=== PATIENT | female | born 1935 | race Caucasian/White ===

== ENCOUNTER → 2018-09-21 13:26 | Outpatient (REF) | payer MEDICARE, SELFPAY ==
[2018-09-21 13:51] LABS: Add Manual Diff / Slide Review NO; Basophils Absolute Auto 100 /uL (0-100); Eosinophils Absolute Auto 100 /uL (0-450); Eosinophils Percent Auto 1.3 % (2-4); Hematocrit 47.9 % (36-46); Hemoglobin 15.7 g/dL (12.0-16.0); Lymphocytes Absolute Auto 600 /uL (1100-4500); Lymphocytes Percent Auto 8.1 % (25-40); Mean Corpuscular HGB Conc 32.7 % (30-36); Mean Corpuscular Hemoglobin 29.4 PG (26-34); Mean Corpuscular Volume 89.9 fL (80-100); Monocytes Absolute Auto 500 /uL (0-900); Monocytes Percent Auto 6.5 % (3-14); Neutrophils Absolute Auto 6500 /uL (1500-7000); Neutrophils Percent Auto 83.1 % (50-75); Platelet Count 357 X10^3/uL (150-400); Red Blood Cell Count 5.33 X10^6/uL (4.0-5.2); Red Cell Distribution Width 14.8 % (11.6-14.8); White Blood Cell Count 7.8 X10^3/uL (4.5-11.0)
[2018-09-21 14:00] LABS: Alanine Aminotransferase 27 IU/L (9-52); Albumin 4.5 g/dL (3.5-5.0); Albumin Globulin Ratio 1.8 (1.0-2.8); Alkaline Phosphatase 62 U/L (38-126); Aspartate Aminotransferase 28 IU/L (14-36); Bilirubin Total 0.6 mg/dL (0.2-1.3); Blood Urea Nitrogen 14 mg/dL (7-17); Calcium 9.5 mg/dL (8.4-10.2); Carbon Dioxide 25 mmol/L (22-32); Chloride 100 mmol/L (98-107); Estimated Glomerular Filt Rate > 60.0 mL/min (>60); Globulin 2.5 g/dL (1.7-4.1); Glucose 190 mg/dL (80-110); HEMOLYSIS 22 (0-50); Potassium 4.3 mmol/L (3.4-5.1); Sodium 139 mmol/L (137-145)
[2018-09-21 14:21] LABS: Erythrocyte Sedimentation Rate 7 MM/HR (0-20)
[2018-09-21 14:49] LABS: Vitamin B12 764 pg/mL (239-931)
[2018-09-21 15:31] LABS: Folate 16.1 ng/mL (2.76-20.0)
[2018-09-21 17:06] LABS: Thyroid Stimulating Hormone 1.89 uIU/mL (0.47-4.68)
== END ==
LOC: LAB 13:26
PROVIDERS: Visit Provider Family Medicine
DX: R53.83 Other fatigue (principal); R53.81 Other malaise; R53.1 Weakness
CPT/HCPCS: 36415; 80053; 82607; 82728; 82746; 84443; 85025; 85651

== ENCOUNTER → 2018-09-29 19:21 | Outpatient (ROUT) | payer MEDICARE, SELFPAY ==
[2018-09-29 20:02] LABS: Glucose 85 mg/dL (80-110)
[2018-09-29 20:05] LABS: Hemoglobin A1C% w Est Avg Glu 5.4 % (4.0-6.0)
== END ==
PROVIDERS: Visit Provider Family Medicine
DX: E11.9 Type 2 diabetes mellitus without complications (principal)
CPT/HCPCS: 36415; 82947; 83036